=== PATIENT | female | born 1990 | race African-American/Black ===

== ENCOUNTER 2022-10-31 19:05 | Emergency (ER) | payer MEDICAID, OTHER ==
[~2022-10-31] VITALS: Ht 167.6 cm; Wt 119.5 kg
[~2022-10-31 19:05] MED LIST: CITA-144 PO; LAMO25TA25 PO; PHENY100 PO
[2022-10-31 19:10] VITALS: BP 154/101
== END 2022-10-31 21:40 | disposition left against medical advice (07) ==
LOC: EMS 19:21
DX: Z53.21 Procedure and treatment not carried out due to patient leaving prior to being seen by health care provider (principal)

== ENCOUNTER 2023-11-17 19:21 | Emergency (ER) | payer OTHER ==
[~2023-11-17] VITALS: Ht 167.6 cm; Wt 115.0 kg
[2023-11-17 19:27] VITALS: TEMP 99.1
[2023-11-17] MEDS: LIDOCAINE 1% 10 ML VIAL SQ ONE (22:57)
[2023-11-17] MEDS: CEPHALEXIN MONOHYDRATE 500 MG CAPSULE PO ONE (22:58)
[2023-11-17] MEDS: BACITRACIN 0.9 GM PACKET OINTMENT TP ONE (22:58)
[2023-11-17] MEDS: PERTUSS(ACELL),DIPH,TET VAC/PF 0.5 ML SYRINGE IM. ONE (22:59)
[2023-11-17] MEDS ORDERED: BACI28.410 TP (23:33)
[2023-11-17] MEDS ORDERED: CEPH-558 PO (23:33)
[2023-11-17] MEDS ORDERED: ACET-66 PO (23:33)
[2023-11-17 23:46] VITALS: BP 127/80; PULSE 84; RESP 18
== END 2023-11-17 23:47 | disposition still patient (30) ==
LOC: EMS 19:22
DX: S81.812A Laceration without foreign body, left lower leg, initial encounter (principal); F32.A Depression, unspecified; F41.9 Anxiety disorder, unspecified; I10 Essential (primary) hypertension; F17.210 Nicotine dependence, cigarettes, uncomplicated; F12.90 Cannabis use, unspecified, uncomplicated; Z98.890 Other specified postprocedural states; Z88.6 Allergy status to analgesic agent; Z88.8 Allergy status to other drugs, medicaments and biological substances; W25.XXXA Contact with sharp glass, initial encounter; Y93.89 Activity, other specified; Y92.89 Other specified places as the place of occurrence of the external cause; Y99.8 Other external cause status
CPT/HCPCS: 99283; 90715; 90471; 12002; J3490

== ENCOUNTER 2025-09-23 08:07 | Emergency (ER) | payer OTHER ==
[~2025-09-23] VITALS: Ht 167.6 cm; Wt 128.6 kg
[~2025-09-23 08:07] MED LIST changes: +ACET-66 PO; +BACI28.410 TP; +CEPH-558 PO; -CITA-144 PO; -LAMO25TA25 PO; -PHENY100 PO
[2025-09-23 08:25] VITALS: TEMP 98.7
[2025-09-23 08:43] LABS: COVID AG,FIA SOURCE NASAL SWAB
[2025-09-23 09:01] LABS: SARS-COV2 (COVID) ANTIGEN,FIA Negative (Negative)
[2025-09-23 09:02] LABS: INFLUENZA TYPE A NEGATIVE FOR TYPE A (NEGATIVE); INFLUENZA TYPE B NEGATIVE FOR TYPE B (NEGATIVE)
[2025-09-23 10:52] VITALS: BP 131/100; PULSE 89; RESP 16; O2SAT 99
== END 2025-09-23 11:23 | disposition home or self-care (01) ==
LOC: EMS 08:08
DX: J06.9 Acute upper respiratory infection, unspecified (principal); I10 Essential (primary) hypertension; F41.9 Anxiety disorder, unspecified; F32.A Depression, unspecified; F12.90 Cannabis use, unspecified, uncomplicated; F17.210 Nicotine dependence, cigarettes, uncomplicated; Z98.890 Other specified postprocedural states; Z88.6 Allergy status to analgesic agent; Z79.899 Other long term (current) drug therapy; Z20.822 Contact with and (suspected) exposure to COVID-19
CPT/HCPCS: 71045; 87804; 99284